=== PATIENT | male | born 1960 | race Caucasian/White ===

== ENCOUNTER → 2023-11-24 09:51 | Outpatient (REF) | payer MEDICARE, OTHER, SELFPAY | LOC: MRI 3T 09:51 | PROVIDERS: ATTENDING PHYSICIAN Orthopaedic Surgery; FAMILY PHYSICIAN Family Medicine | DX: M25.562 Pain in left knee (principal) | CPT/HCPCS: 73721 ==

== ENCOUNTER → 2023-12-01 13:47 | Outpatient (REF) | payer MEDICARE, OTHER, SELFPAY | LOC: SDSPAT 13:47 | PROVIDERS: ATTENDING PHYSICIAN Orthopaedic Surgery; FAMILY PHYSICIAN Family Medicine | DX: S83.242A Other tear of medial meniscus, current injury, left knee, initial encounter (principal) | CPT/HCPCS: 36415; 93005 ==

== ENCOUNTER 2023-12-07 06:21 | Day surgery (SDC) | payer MEDICARE, OTHER, SELFPAY ==
[2023-12-01 14:00] VITALS: BMI 32.8
[2023-12-07] VITALS (10 sets, daily range): BP systolic 134–151; BP diastolic 84–104; BMI 32.8
[2023-12-07] MEDS: TYLENOL 1000 MG PO (10:26)
[2023-12-07] MEDS: CELEBREX 200 MG PO (10:26)
== END 2023-12-07 15:50 | disposition home or self-care (01) ==
LOC: SDS 06:21
PROVIDERS: ATTENDING PHYSICIAN Orthopaedic Surgery; FAMILY PHYSICIAN Family Medicine
DX: S83.242A Other tear of medial meniscus, current injury, left knee, initial encounter (principal); X58.XXXA Exposure to other specified factors, initial encounter; Y93.02 Activity, running; Y92.522 Railway station as the place of occurrence of the external cause
CPT/HCPCS: 29881

== ENCOUNTER → 2023-12-14 08:39 | Outpatient (REF) | payer MEDICARE, OTHER, SELFPAY | LOC: MRI 3T 08:39 | PROVIDERS: ATTENDING PHYSICIAN Specialist; FAMILY PHYSICIAN Family Medicine | DX: R97.20 Elevated prostate specific antigen [PSA] (principal) | CPT/HCPCS: 72197; A9575 ==

== ENCOUNTER → 2023-12-27 | Outpatient (REF) | payer MEDICARE, OTHER, SELFPAY | LOC: DHSLP | PROVIDERS: ATTENDING PHYSICIAN Family Medicine | DX: G47.33 Obstructive sleep apnea (adult) (pediatric) (principal) | CPT/HCPCS: 95800 ==

== ENCOUNTER → 2024-01-02 12:47 | Outpatient (REF) | payer MEDICARE, OTHER, SELFPAY | LOC: CLAB 12:47 | PROVIDERS: ATTENDING PHYSICIAN Specialist | DX: R97.20 Elevated prostate specific antigen [PSA] (principal) | CPT/HCPCS: 88305; 88344 ==

== ENCOUNTER → 2024-10-24 06:46 | Outpatient (REF) | payer MEDICARE, OTHER, SELFPAY | LOC: MRI 06:46 | PROVIDERS: ATTENDING PHYSICIAN Orthopaedic Surgery; FAMILY PHYSICIAN Family Medicine | DX: M25.512 Pain in left shoulder (principal); M54.2 Cervicalgia | CPT/HCPCS: 72141; 73221 ==